=== PATIENT | female | born 1950 | race Caucasian/White ===

== ENCOUNTER 2024-01-02 11:06 | Inpatient (IN) | payer MEDICARE ==
[~2024-01-02] VITALS: Ht 167.6 cm; Wt 110.0 kg
[~2024-01-02 11:06] MED LIST: APIX5TAB PO; ATOR10TA69 PO; BENZ100C68 PO; CARV25TA32 PO; CIPR500T10 PO; DOXY-354 PO; ESCI20TA37 PO; FURO20TA4 PO; LEVO75 PO; LINE600T14 PO; LISI10TA24 PO; MIRT-93 PO; NYST30CR9 TP; PREG50CA64 PO; QUET50TA24 PO; TAMS0.4C94 PO; ZOLP12.570 PO
[2024-01-02] MEDS ORDERED: 0.9% SODIUM CHLORIDE 10 ML SYRINGE IVP PRN (11:30)
[2024-01-02 11:59] LABS: BASOPHILS % (AUTO) 0.5 % (0.0-2.0); EOSINOPHILS % (AUTO) 1.5 % (1.0-6.0); HEMATOCRIT 28.6 % (36-46); HEMOGLOBIN 9.1 g/dL (12.0-16.0); LYMPHOCYTES # (AUTO) 1.5 K/uL (1.0-4.8); LYMPHOCYTES % (AUTO) 18.8 % (22.0-44.0); MEAN CORPUSCULAR HEMOGLOBIN 30.6 pg (26.0-34.0); MEAN CORPUSCULAR HGB CONC 31.9 G/dL (31.0-37.0); MEAN CORPUSCULAR VOLUME 96 fL (80-100); MONOCYTES # (AUTO) 0.7 K/uL (0.1-1.0); MONOCYTES % (AUTO) 9.3 % (2.0-9.0); NEUTROPHILS # (AUTO) 5.5 K/uL (1.8-7.7); NEUTROPHILS % (AUTO) 69.9 % (40.0-70.0); PLATELET COUNT (AUTO) 190 K/uL (150-450); RED BLOOD CELL COUNT(AUTO) 2.98 MIL/uL (4.00-5.20); RED CELL DISTRIBUTION WIDTH 16.2 % (11.5-14.5); WHITE BLOOD COUNT (AUTO) 7.8 K/uL (4.5-11.0)
[2024-01-02] MEDS: VANCOMYCIN 1GM/WATER(PEG/NADA) 200 ML IV ONE (12:08)
[2024-01-02] MEDS: SODIUM CHLORIDE 0.9% 3,350 ML IV ONE (12:08)
[2024-01-02 12:15] LABS: INR 1.1 (0.9-1.1); PROTHROMBIN TIME 11.7 SEC (9.4-11.6)
[2024-01-02 12:16] LABS: B-TYPE NATRIURETIC PEPTIDE 274 pg/mL (0-100)
[2024-01-02 12:19] LABS: TROPONIN I-HIGH SENSITIVITY 6 ng/L (<51)
[2024-01-02 12:21] LABS: ALANINE AMINOTRANSFERASE 21 U/L (12-78); ALBUMIN 2.8 g/dL (3.4-5.0); ALKALINE PHOSPHATASE 140 U/L (46-116); ANION GAP 12 mmol/L (8-16); ASPARTATE AMINOTRANSFERASE 15 U/L (15-37); BILIRUBIN,TOTAL 0.1 mg/dL (0.1-1.0); CALCIUM, TOTAL 8.5 mg/dL (8.8-10.5); CARBON DIOXIDE 15 mmol/L (22-29); CHLORIDE 108 mmol/L (98-107); CREATINE KINASE, TOTAL ONLY 61 U/L (26-192); CREATININE 5.41 mg/dL (0.60-1.30); GLOMERULAR FILTR. RATE CALC 8 mL/min (>60); GLUCOSE,RANDOM 104 mg/dL (70-110); SODIUM SERUM 135 mmol/L (136-145)
[2024-01-02 12:26] LABS: LACTIC ACID < 0.3 mmol/L (0.4-2.0)
[2024-01-02 12:27] LABS: UREA NITROGEN, BLOOD 128 mg/dL (7-18)
[2024-01-02] MEDS: SODIUM BICARBONATE [ADULT] 8.4% 50 MEQ/50 ML SYRINGE IVP ONE (13:16)
[2024-01-02] MEDS: INSULIN REGULAR, HUMAN 100 UNITS/ML IVP ONE (13:16)
[2024-01-02] MEDS: DEXTROSE 50%-WATER 25 GM/50 ML SYRINGE IVP ONE (13:16)
[2024-01-02] MEDS: NOREPINEPHRINE 8 MG/0.9 % NACL 250 ML IV PRN (13:17)
[2024-01-02 13:18] VITALS: PULSE 55; RESP 16; O2SAT 98
[2024-01-02] MEDS: ALBUTEROL SULFATE 2.5 MG/0.5 ML NEB SOLUTION NEB ONE (13:18)
[2024-01-02 13:33] VITALS: PULSE 51; RESP 16; O2SAT 99
[2024-01-02 13:40] LABS: THYROID STIMULATING HORMONE 1.66 uIU/mL (0.36-3.74)
[2024-01-02] MEDS: CALCIUM GLUCONATE 1,000 MG in DEXTROSE 5%-WATER 50 ML IV ONE (13:40)
[2024-01-02] MEDS: SODIUM ZIRCONIUM CYCLOSILICATE 5 GM POWDER PACKET PO ONE (14:42)
[2024-01-02 15:17] LABS: APPEARANCE,URINE CLEAR (CLEAR); BILIRUBIN,URINE NEGATIVE (NEGATIVE); COLOR,URINE LIGHT YELLOW (YELLOW); GLUCOSE, URINE (UA) NEGATIVE (NEGATIVE); KETONES,URINE NEGATIVE (NEGATIVE); LEUKOCYTE ESTERASE ,URINE NEGATIVE (NEGATIVE); NITRATE,URINE NEGATIVE (NEGATIVE); OCCULT BLOOD,URINE NEGATIVE (NEGATIVE); PROTEIN,URINE TRACE mg/dL (NEGATIVE); UROBILINOGEN,URINE <=1.0 mg/dL (<=1.0)
[2024-01-02 17:08] LABS: CALCIUM, TOTAL 8.5 mg/dL (8.8-10.5); CREATININE 4.93 mg/dL (0.60-1.30); POTASSIUM 5.5 mmol/L (3.5-5.1)
[2024-01-02 17:14] LABS: SOURCE, BLOOD GAS ARTERIAL; TEMPERATURE, FAHRENHEIT, BG 92.6 FAHREN (96.0-98.6)
[2024-01-02 17:17] LABS: ABG BASE EXCESS -17.5 mmol/L (-2.0-3.0); ABG CARBOXYHEMOGLOBIN 0.7 % (0.0-1.5); ABG HCO3 11.5 mmol/L (22.0-26.0); ABG OXYGEN SATURATION 98.2 % (95.0-98.0); ABG OXYHEMOGLOBIN 96.5 % (94.0-100.0); ABG PCO2 44 mmHg (35-45); ABG TOTAL HEMOGLOBIN 10.9 G/dL (12.0-18.0); PO2, ARTERIAL BG 94.4 mmHg (75.0-83.0)
[2024-01-02 17:18] LABS: ABG A-A DIFF O2 56.2 mmHg (10-20.0); ALLEN TEST, BLOOD GAS Positive; O2 DEVICE,BLOOD GAS CANNULA (ROOM AIR); SITE, BLOOD GAS RT RADIAL
[2024-01-02 17:19] LABS: ALCOHOL, URINE DRUG SCREEN NEGATIVE (NEGATIVE); AMPHET/METH SCREEN,URINE NEGATIVE (NEGATIVE); BARBITURATE SCREEN, URINE NEGATIVE (NEGATIVE); BENZODIAZEPINES SCREEN,URINE NEGATIVE (NEGATIVE); CANNABINOID SCREEN,URINE NEGATIVE (NEGATIVE); COCAINE SCREEN,URINE NEGATIVE (NEGATIVE); METHADONE SCREEN, URINE NEGATIVE (NEGATIVE); OPIATE SCREEN,URINE NEGATIVE (NEGATIVE); PHENCYCLIDINE SCREEN,URINE NEGATIVE (NEGATIVE)
[2024-01-02 17:32] LABS: ABG PH 7.077 (7.35-7.450)
[2024-01-02] MEDS ORDERED: PHENYLEPHRINE 200 MG/D5%-WATER 250 ML IV PRN (20:30)
[2024-01-02] MEDS: CefTRIAXone 1 GM/DEXTROSE 50 ML IV SCH (20:41)
[2024-01-02] MEDS: SODIUM BICARBONATE 150 MEQ in DEXTROSE 5%-WATER 1,000 ML IV ONE (21:19)
[2024-01-03] VITALS: BP 148/82; PULSE 66; PULSE 72; RESP 16; TEMP 97.4
[2024-01-03] MEDS ORDERED: MORPHINE SULFATE 2 MG/ML SYRINGE IVP PRN (01:15)
[2024-01-03 04:00] VITALS: BP 130/52; PULSE 70; RESP 19; TEMP 98.6
[2024-01-03] MEDS: NOREPINEPHRINE 8 MG/0.9 % NACL 250 ML IV PRN (05:50)
[2024-01-03 06:02] LABS: BASOPHILS % (AUTO) 0.3 % (0.0-2.0); EOSINOPHILS % (AUTO) 1.7 % (1.0-6.0); HEMATOCRIT 28.9 % (36-46); HEMOGLOBIN 9.5 g/dL (12.0-16.0); LYMPHOCYTES # (AUTO) 1.1 K/uL (1.0-4.8); LYMPHOCYTES % (AUTO) 10.9 % (22.0-44.0); MEAN CORPUSCULAR HEMOGLOBIN 31.2 pg (26.0-34.0); MEAN CORPUSCULAR HGB CONC 32.9 G/dL (31.0-37.0); MEAN CORPUSCULAR VOLUME 95 fL (80-100); MONOCYTES # (AUTO) 0.8 K/uL (0.1-1.0); MONOCYTES % (AUTO) 8.2 % (2.0-9.0); NEUTROPHILS # (AUTO) 7.8 K/uL (1.8-7.7); NEUTROPHILS % (AUTO) 78.9 % (40.0-70.0); PLATELET COUNT (AUTO) 195 K/uL (150-450); RED BLOOD CELL COUNT(AUTO) 3.05 MIL/uL (4.00-5.20); RED CELL DISTRIBUTION WIDTH 15.8 % (11.5-14.5); WHITE BLOOD COUNT (AUTO) 9.9 K/uL (4.5-11.0)
[2024-01-03 06:13] LABS: CALCIUM, TOTAL 8.6 mg/dL (8.8-10.5); CREATININE 4.5 mg/dL (0.60-1.30)
[2024-01-03 08:00] VITALS: BP 109/52; PULSE 63; RESP 14; TEMP 98.1
[2024-01-03] MEDS ORDERED: MAGNESIUM HYDROXIDE SUSPENSION 30 ML UDCUP PO PRN (08:15)
[2024-01-03] MEDS ORDERED: BISACODYL 10 MG RECTAL RECTAL SUPPOSITORY PR PRN (08:15)
[2024-01-03 08:41] LABS: GLUCOMETER DEV NAME(LOC) ER.7; GLUCOSE,POINT OF CARE 114 MG/DL (70-110)
[2024-01-03] MEDS: EPOETIN ALFA 10,000 UNITS/ML VIAL SQ ONE (10:01)
[2024-01-03] MEDS: ESCITALOPRAM OXALATE 20 MG TABLET PO SCH (10:02)
[2024-01-03] MEDS: PANTOPRAZOLE SODIUM 40 MG DR TABLET PO SCH (10:02)
[2024-01-03] MEDS: APIXABAN 5 MG TABLET PO SCH (10:02)
[2024-01-03] MEDS: ATORVASTATIN CALCIUM 10 MG TABLET PO SCH (10:02)
[2024-01-03 12:00] VITALS: BP 115/69; PULSE 91; RESP 13; TEMP 98.1
[2024-01-03] MEDS: SODIUM BICARBONATE 150 MEQ in DEXTROSE 5%-WATER 1,000 ML IV SCH (13:45)
[2024-01-03] MEDS: MORPHINE SULFATE 2 MG/ML SYRINGE IVP PRN (15:30)
[2024-01-03 16:00] VITALS: BP 119/66; PULSE 68; RESP 19; TEMP 98.3
[2024-01-03 17:40] LABS: CREATININE,URINE RANDOM 50.7 mg/dL (30.0-125.0)
[2024-01-03 20:00] VITALS: BP 108/50; PULSE 68; RESP 13; TEMP 98.1
[2024-01-03] MEDS: QUEtiapine FUMARATE 25 MG TABLET PO SCH (20:40)
[2024-01-04] VITALS (8 sets, daily range): BP systolic 120–145; BP diastolic 55–81; PULSE 57–75; RESP 13–19; TEMP 97.8–99.6
[2024-01-04] MEDS: HYDROCODONE/ACETAMINOPHEN 5-325 MG TABLET PO PRN (03:47)
[2024-01-04] MEDS: LEVOTHYROXINE SODIUM 75 MCG TABLET PO SCH (06:21)
[2024-01-04] MEDS: ACETAMINOPHEN 325 MG TABLET PO PRN (12:07)
[2024-01-04 16:24] LABS: BASOPHILS % (AUTO) 0.3 % (0.0-2.0); EOSINOPHILS % (AUTO) 0.8 % (1.0-6.0); HEMATOCRIT 27.4 % (36-46); LYMPHOCYTES % (AUTO) 13.2 % (22.0-44.0); MEAN CORPUSCULAR HEMOGLOBIN 30.6 pg (26.0-34.0); MEAN CORPUSCULAR HGB CONC 32.9 G/dL (31.0-37.0); MEAN CORPUSCULAR VOLUME 93 fL (80-100); MONOCYTES # (AUTO) 1.2 K/uL (0.1-1.0); MONOCYTES % (AUTO) 15.3 % (2.0-9.0); NEUTROPHILS # (AUTO) 5.4 K/uL (1.8-7.7); NEUTROPHILS % (AUTO) 70.4 % (40.0-70.0); PLATELET COUNT (AUTO) 178 K/uL (150-450); RED BLOOD CELL COUNT(AUTO) 2.95 MIL/uL (4.00-5.20); RED CELL DISTRIBUTION WIDTH 15.9 % (11.5-14.5); WHITE BLOOD COUNT (AUTO) 7.7 K/uL (4.5-11.0)
[2024-01-04 16:28] LABS: CALCIUM, TOTAL 8.5 mg/dL (8.8-10.5); CREATININE 2.9 mg/dL (0.60-1.30); POTASSIUM 4.4 mmol/L (3.5-5.1)
[2024-01-04 16:33] LABS: ALBUMIN 2.6 g/dL (3.4-5.0); BILIRUBIN,TOTAL 0.3 mg/dL (0.1-1.0); TOTAL PROTEIN, SERUM 6.9 g/dL (6.4-8.2)
[2024-01-05] VITALS (9 sets, daily range): BP systolic 117–154; BP diastolic 52–69; PULSE 62–79; RESP 20; TEMP 98.4–100.3
[2024-01-06] VITALS (12 sets, daily range): BP systolic 123–159; BP diastolic 58–70; PULSE 56–72; RESP 18–24; TEMP 98–100.4; O2SAT 92–97
[2024-01-06] MEDS: ALBUTEROL SULFATE 2.5 MG/0.5 ML NEB SOLUTION NEB PRN (00:15)
[2024-01-06] MEDS: IPRATROPIUM BROMIDE 0.5 MG/2.5 ML NEB SOLUTION NEB PRN (00:15)
[2024-01-06 01:06] LABS: CREATININE, URINE (mALB) 51.1 mg/dL (Not Estab.)
[2024-01-06 09:01] LABS: BASOPHILS % (AUTO) 0.3 % (0.0-2.0); CALCIUM, TOTAL 9.1 mg/dL (8.8-10.5); CREATININE 1.96 mg/dL (0.60-1.30); EOSINOPHILS % (AUTO) 1.3 % (1.0-6.0); HEMATOCRIT 26.3 % (36-46); HEMOGLOBIN 8.4 g/dL (12.0-16.0); LYMPHOCYTES # (AUTO) 1.3 K/uL (1.0-4.8); MEAN CORPUSCULAR HEMOGLOBIN 30.1 pg (26.0-34.0); MEAN CORPUSCULAR VOLUME 94 fL (80-100); MONOCYTES # (AUTO) 1.3 K/uL (0.1-1.0); MONOCYTES % (AUTO) 13.2 % (2.0-9.0); NEUTROPHILS # (AUTO) 7.1 K/uL (1.8-7.7); NEUTROPHILS % (AUTO) 72.2 % (40.0-70.0); POTASSIUM 4.3 mmol/L (3.5-5.1); RED BLOOD CELL COUNT(AUTO) 2.79 MIL/uL (4.00-5.20); RED CELL DISTRIBUTION WIDTH 15.4 % (11.5-14.5); WHITE BLOOD COUNT (AUTO) 9.8 K/uL (4.5-11.0)
[2024-01-06 09:22] LABS: PLATELET COUNT (AUTO) 172 K/uL (150-450)
[2024-01-06 12:16] LABS: APPEARANCE,URINE CLEAR (CLEAR); BILIRUBIN,URINE NEGATIVE (NEGATIVE); COLOR,URINE LIGHT YELLOW (YELLOW); GLUCOSE, URINE (UA) NEGATIVE (NEGATIVE); KETONES,URINE NEGATIVE (NEGATIVE); LEUKOCYTE ESTERASE ,URINE LARGE (NEGATIVE); NITRATE,URINE NEGATIVE (NEGATIVE); OCCULT BLOOD,URINE LARGE (NEGATIVE); PROTEIN,URINE 100-200,SEE CONFIRM mg/dL (NEGATIVE); SPECIFIC GRAVITIY, URINE 1.018 (1.003-1.030); UROBILINOGEN,URINE <=1.0 mg/dL (<=1.0)
[2024-01-06 12:22] LABS: BACTERIA,URINE Moderate /HPF (None Seen); RBC,URINE 51-100 /HPF (0-2); SULFOSALICYLIC ACID,URINE 2+ (Negative); WBC,URINE 26-50 /HPF (0-5)
[2024-01-06 12:23] LABS: YEAST,URINE Moderate /HPF (None Seen)
[2024-01-06] MEDS: *CLINICAL-CEFEPIME DOSING CLINICAL ONE (13:28)
[2024-01-06] MEDS: CEFEPIME HCL 1 GM in DEXTROSE 5%-WATER 50 ML IV SCH (14:25)
[2024-01-06] MEDS ORDERED: SODIUM CHLORIDE 0.9% 500 ML IV ONE (14:26)
[2024-01-06] MEDS: DAPTOMYCIN 500 MG in SODIUM CHLORIDE 0.9% 50 ML IV SCH (15:17)
[2024-01-06] MEDS: DEXTROSE 5%-WATER 1,000 ML IV SCH (17:43)
[2024-01-07] MEDS: BENZONATATE 100 MG CAPSULE PO PRN (01:08)
[2024-01-07 04:55] VITALS: BP 152/75; PULSE 67; RESP 18; TEMP 99.9
[2024-01-07 07:46] LABS: CALCIUM, TOTAL 9.1 mg/dL (8.8-10.5); CREATININE 1.81 mg/dL (0.60-1.30)
[2024-01-07 08:15] VITALS: BP 148/78; PULSE 68; RESP 19; TEMP 98.9
[2024-01-07] MEDS: GuaiFENesin SR 600 MG ER TABLET PO SCH (13:36)
[2024-01-07] MEDS: MetroNIDAZOLE 500 MG TABLET PO SCH (16:04)
[2024-01-07 16:21] VITALS: BP 144/64; PULSE 66; RESP 19; TEMP 98.8
[2024-01-07 19:26] VITALS: BP 149/73; PULSE 63; RESP 18; TEMP 98.7
[2024-01-08 04:30] VITALS: BP 151/71; PULSE 61; RESP 20; TEMP 98.5
[2024-01-08 08:15] VITALS: BP 158/77; PULSE 61; RESP 18; TEMP 98.4
[2024-01-08 10:55] LABS: BASOPHILS % (AUTO) 0.6 % (0.0-2.0); EOSINOPHILS % (AUTO) 2.4 % (1.0-6.0); HEMATOCRIT 25.1 % (36-46); HEMOGLOBIN 8.1 g/dL (12.0-16.0); MEAN CORPUSCULAR HEMOGLOBIN 30.4 pg (26.0-34.0); MEAN CORPUSCULAR HGB CONC 32.3 G/dL (31.0-37.0); MEAN CORPUSCULAR VOLUME 94 fL (80-100); MONOCYTES % (AUTO) 12.7 % (2.0-9.0); NEUTROPHILS # (AUTO) 5.7 K/uL (1.8-7.7); NEUTROPHILS % (AUTO) 71.3 % (40.0-70.0); PLATELET COUNT (AUTO) 186 K/uL (150-450); RED BLOOD CELL COUNT(AUTO) 2.67 MIL/uL (4.00-5.20); RED CELL DISTRIBUTION WIDTH 14.9 % (11.5-14.5)
[2024-01-08 11:03] LABS: CALCIUM, TOTAL 9.2 mg/dL (8.8-10.5); CREATININE 1.51 mg/dL (0.60-1.30)
[2024-01-08 11:09] LABS: ALBUMIN 2.2 g/dL (3.4-5.0); BILIRUBIN,TOTAL 0.5 mg/dL (0.1-1.0); TOTAL PROTEIN, SERUM 6.7 g/dL (6.4-8.2)
[2024-01-08 15:06] VITALS: BP 147/75; PULSE 59; RESP 18; TEMP 98.6
[2024-01-08 19:25] VITALS: BP 134/58; PULSE 66; RESP 18; TEMP 98.4
[2024-01-09] VITALS (7 sets, daily range): BP systolic 140–151; BP diastolic 68–89; PULSE 60–75; RESP 18–20; TEMP 98.3–99.2; O2SAT 100
[2024-01-09] MEDS: ONDANSETRON HCL 4 MG/2 ML VIAL IVP PRN (10:07)
[2024-01-09] MEDS ORDERED: SODIUM CHLORIDE 0.9% 500 ML IV ONE (14:47)
[2024-01-10 03:02] VITALS: BP 147/90; PULSE 75; RESP 20; TEMP 98.7
[2024-01-10 08:00] VITALS: BP 143/72; PULSE 68; RESP 18; TEMP 98.3
[2024-01-10] MEDS: AMPICILLIN SODIUM/SULBACTAM NA 3 GM in SODIUM CHLORIDE 0.9% 100 ML IV SCH (14:00)
[2024-01-10 15:59] VITALS: BP 139/77; PULSE 70; RESP 18; TEMP 97.7
[2024-01-10] MEDS ORDERED: DAPTOMYCIN 500 MG in SODIUM CHLORIDE 0.9% 50 ML IV SCH (16:00)
[2024-01-10 19:31] VITALS: BP 124/60; PULSE 79; RESP 18; TEMP 98.9
[2024-01-11] VITALS (7 sets, daily range): BP systolic 143–149; BP diastolic 72–87; PULSE 73–78; RESP 18–20; TEMP 97.8–99.1; O2SAT 90–96
[2024-01-11 12:22] LABS: CREATININE 1.42 mg/dL (0.60-1.30); MAGNESIUM 1.8 mg/dL (1.80-2.40); PHOSPHORUS 2.9 mg/dL (2.5-4.9); POTASSIUM 4.3 mmol/L (3.5-5.1)
[2024-01-12] VITALS (12 sets, daily range): BP systolic 132–147; BP diastolic 70–91; PULSE 68–125; RESP 15–33; TEMP 97.5–99.6; O2SAT 90–97
[2024-01-12] MEDS ORDERED: SODIUM CHLORIDE 0.9% 500 ML IV ONE (09:08)
[2024-01-12] MEDS ORDERED: LOPERAMIDE HCL 2 MG CAPSULE PO PRN (13:00)
[2024-01-12 14:52] LABS: ABG BASE EXCESS 0.3 mmol/L (-2.0-3.0); ABG CARBOXYHEMOGLOBIN 0.3 % (0.0-1.5); ABG HCO3 24.1 mmol/L (22.0-26.0); ABG METHEMOGLOBIN 0.1 % (0.0-1.5); ABG OXYGEN CONTENT 15.4 mL/dL (15.0-23.0); ABG OXYGEN SATURATION 96.6 % (95.0-98.0); ABG OXYHEMOGLOBIN 96.2 % (94.0-100.0); ABG PCO2 56 mmHg (35-45); ABG PH 7.297 (7.35-7.450); ABG TOTAL HEMOGLOBIN 11.3 G/dL (12.0-18.0); PO2, ARTERIAL BG 96.5 mmHg (75.0-83.0); SOURCE, BLOOD GAS ARTERIAL; TEMPERATURE, FAHRENHEIT, BG 98.6 FAHREN (96.0-98.6)
[2024-01-12 14:55] LABS: ALLEN TEST, BLOOD GAS Positive; O2 DEVICE,BLOOD GAS SIMPLE MASK (ROOM AIR); SITE, BLOOD GAS LFT RADIAL
[2024-01-12] MEDS ORDERED: SODIUM CHLORIDE 0.9% 250 ML IV ONE (14:59)
[2024-01-12] MEDS: AMPICILLIN SODIUM 2 GM/NS 100 ML IV SCH (15:40)
[2024-01-12] MEDS: MetroNIDAZOLE 500 MG TABLET PO SCH (15:41)
[2024-01-12] MEDS: NYSTATIN 15 GM POWDER BOTTLE TP SCH (15:41)
[2024-01-12 19:50] LABS: GLUCOMETER DEV NAME(LOC) 6S.2; GLUCOSE,POINT OF CARE 188 MG/DL (70-110)
[2024-01-13] VITALS (15 sets, daily range): BP systolic 129–159; BP diastolic 57–94; PULSE 65–97; RESP 13–39; TEMP 97.5–98; O2SAT 94–96
[2024-01-13 05:54] LABS: BASOPHILS % (AUTO) 0.5 % (0.0-2.0); EOSINOPHILS % (AUTO) 1.6 % (1.0-6.0); HEMATOCRIT 26.2 % (36-46); HEMOGLOBIN 8.4 g/dL (12.0-16.0); LYMPHOCYTES # (AUTO) 1.1 K/uL (1.0-4.8); LYMPHOCYTES % (AUTO) 11.6 % (22.0-44.0); MEAN CORPUSCULAR HEMOGLOBIN 30.1 pg (26.0-34.0); MEAN CORPUSCULAR VOLUME 94 fL (80-100); MONOCYTES # (AUTO) 1.2 K/uL (0.1-1.0); MONOCYTES % (AUTO) 12.4 % (2.0-9.0); NEUTROPHILS # (AUTO) 7.2 K/uL (1.8-7.7); NEUTROPHILS % (AUTO) 73.9 % (40.0-70.0); PLATELET COUNT (AUTO) 274 K/uL (150-450); RED BLOOD CELL COUNT(AUTO) 2.78 MIL/uL (4.00-5.20); RED CELL DISTRIBUTION WIDTH 14.9 % (11.5-14.5); WHITE BLOOD COUNT (AUTO) 9.7 K/uL (4.5-11.0)
[2024-01-13 06:02] LABS: ALBUMIN 2.4 g/dL (3.4-5.0); BILIRUBIN,TOTAL 0.4 mg/dL (0.1-1.0); CREATININE 1.39 mg/dL (0.60-1.30); MAGNESIUM 1.8 mg/dL (1.80-2.40); PHOSPHORUS 2.5 mg/dL (2.5-4.9); POTASSIUM 3.5 mmol/L (3.5-5.1); TOTAL PROTEIN, SERUM 6.6 g/dL (6.4-8.2)
[2024-01-13] MEDS: DiphenhydrAMINE HCL 25 MG CAPSULE PO PRN (16:55)
[2024-01-13] MEDS: ZOLPIDEM TARTRATE 5 MG TABLET PO PRN (20:58)
[2024-01-14] VITALS (10 sets, daily range): BP systolic 127–205; BP diastolic 46–173; PULSE 63–113; RESP 15–36; TEMP 97.7–99.4; O2SAT 94–95
[2024-01-14 05:58] LABS: BASOPHILS % (AUTO) 0.6 % (0.0-2.0); EOSINOPHILS % (AUTO) 2.2 % (1.0-6.0); HEMOGLOBIN 8.4 g/dL (12.0-16.0); LYMPHOCYTES # (AUTO) 1.1 K/uL (1.0-4.8); LYMPHOCYTES % (AUTO) 13.8 % (22.0-44.0); MEAN CORPUSCULAR HEMOGLOBIN 30.1 pg (26.0-34.0); MEAN CORPUSCULAR HGB CONC 32.2 G/dL (31.0-37.0); MEAN CORPUSCULAR VOLUME 94 fL (80-100); MONOCYTES # (AUTO) 0.9 K/uL (0.1-1.0); MONOCYTES % (AUTO) 11.7 % (2.0-9.0); NEUTROPHILS # (AUTO) 5.5 K/uL (1.8-7.7); NEUTROPHILS % (AUTO) 71.7 % (40.0-70.0); PLATELET COUNT (AUTO) 279 K/uL (150-450); RED BLOOD CELL COUNT(AUTO) 2.78 MIL/uL (4.00-5.20); WHITE BLOOD COUNT (AUTO) 7.7 K/uL (4.5-11.0)
[2024-01-14 06:12] LABS: CALCIUM, TOTAL 8.8 mg/dL (8.8-10.5); CREATININE 1.17 mg/dL (0.60-1.30); MAGNESIUM 1.6 mg/dL (1.80-2.40); PHOSPHORUS 2.4 mg/dL (2.5-4.9); POTASSIUM 3.3 mmol/L (3.5-5.1)
[2024-01-14 06:25] LABS: % IRON SATURATION 17.6 % (22-44)
[2024-01-14] MEDS: EPOETIN ALFA 10,000 UNITS/ML VIAL SQ SCH (08:17)
[2024-01-14] MEDS: SODIUM,POTASSIUM PHOSPHATES POWDER PACKET PO SCH (08:23)
[2024-01-14] MEDS: POTASSIUM CHLORIDE 20 MEQ ER TABLET PO ONE (08:23)
[2024-01-14] MEDS: AmLODIPine BESYLATE 5 MG TABLET PO SCH (08:59)
[2024-01-14] MEDS: MAGNESIUM SULFATE 2 GM/WATER 50 ML IV ONE (09:56)
[2024-01-14] MEDS: HydrALAZINE HCL 20 MG/ML VIAL IVP PRN (09:57)
[2024-01-14] MEDS: LORazepam 2 MG/ML VIAL IVP PRN (11:35)
[2024-01-14] MEDS ORDERED: LABETALOL HCL 5 MG/ML 20 ML VIAL IVP ONE (12:00)
[2024-01-14] MEDS: LABETALOL HCL 5 MG/ML 20 ML VIAL IVP ONE (12:00)
[2024-01-14 12:05] LABS: ABG BASE EXCESS 1.9 mmol/L (-2.0-3.0); ABG CARBOXYHEMOGLOBIN 0.2 % (0.0-1.5); ABG HCO3 26.2 mmol/L (22.0-26.0); ABG METHEMOGLOBIN 0.1 % (0.0-1.5); ABG OXYGEN CONTENT 16.2 mL/dL (15.0-23.0); ABG OXYGEN SATURATION 92.4 % (95.0-98.0); ABG OXYHEMOGLOBIN 92.1 % (94.0-100.0); ABG PCO2 37 mmHg (35-45); ABG PH 7.463 (7.35-7.450); ABG TOTAL HEMOGLOBIN 12.5 G/dL (12.0-18.0); PO2, ARTERIAL BG 58.5 mmHg (75.0-83.0); SOURCE, BLOOD GAS ARTERIAL; TEMPERATURE, FAHRENHEIT, BG 98.6 FAHREN (96.0-98.6)
[2024-01-14 12:06] LABS: ABG A-A DIFF O2 148.4 mmHg (10-20.0); ALLEN TEST, BLOOD GAS Positive; O2 DEVICE,BLOOD GAS BIPAP (ROOM AIR); SITE, BLOOD GAS LFT RADIAL
[2024-01-14 12:07] LABS: SPONTANEOUS VT, BG 568 ml
[2024-01-14] MEDS ORDERED: LABETALOL HCL 5 MG/ML 20 ML VIAL IVP PRN (12:30)
[2024-01-15] VITALS (10 sets, daily range): BP systolic 120–149; BP diastolic 65–88; PULSE 69–95; RESP 20–32; TEMP 97.6–98.6; O2SAT 91–95
[2024-01-15 06:07] LABS: BASOPHILS % (AUTO) 0.6 % (0.0-2.0); HEMATOCRIT 25.5 % (36-46); HEMOGLOBIN 8.2 g/dL (12.0-16.0); LYMPHOCYTES % (AUTO) 12.6 % (22.0-44.0); MEAN CORPUSCULAR HEMOGLOBIN 30.1 pg (26.0-34.0); MEAN CORPUSCULAR HGB CONC 32.2 G/dL (31.0-37.0); MEAN CORPUSCULAR VOLUME 94 fL (80-100); MONOCYTES # (AUTO) 1.1 K/uL (0.1-1.0); MONOCYTES % (AUTO) 13.8 % (2.0-9.0); NEUTROPHILS # (AUTO) 5.7 K/uL (1.8-7.7); PLATELET COUNT (AUTO) 312 K/uL (150-450); RED BLOOD CELL COUNT(AUTO) 2.72 MIL/uL (4.00-5.20); WHITE BLOOD COUNT (AUTO) 8.1 K/uL (4.5-11.0)
[2024-01-15 06:17] LABS: CALCIUM, TOTAL 8.9 mg/dL (8.8-10.5); CREATININE 1.2 mg/dL (0.60-1.30); MAGNESIUM 2.1 mg/dL (1.80-2.40); PHOSPHORUS 2.9 mg/dL (2.5-4.9); POTASSIUM 3.6 mmol/L (3.5-5.1)
[2024-01-15] MEDS: FUROSEMIDE 20 MG/2 ML VIAL IVP SCH (10:08)
[2024-01-15] MEDS: FERROUS GLUCONATE 324 MG TABLET PO SCH (18:00)
[2024-01-16 04:00] VITALS: BP 132/81; PULSE 87; RESP 21; TEMP 98.2
[2024-01-16 06:39] LABS: BASOPHILS % (AUTO) 0.6 % (0.0-2.0); EOSINOPHILS % (AUTO) 1.4 % (1.0-6.0); HEMATOCRIT 28.2 % (36-46); HEMOGLOBIN 9.2 g/dL (12.0-16.0); LYMPHOCYTES # (AUTO) 1.2 K/uL (1.0-4.8); LYMPHOCYTES % (AUTO) 13.1 % (22.0-44.0); MEAN CORPUSCULAR HEMOGLOBIN 30.1 pg (26.0-34.0); MEAN CORPUSCULAR HGB CONC 32.5 G/dL (31.0-37.0); MEAN CORPUSCULAR VOLUME 93 fL (80-100); MONOCYTES # (AUTO) 1.2 K/uL (0.1-1.0); MONOCYTES % (AUTO) 12.8 % (2.0-9.0); NEUTROPHILS # (AUTO) 6.7 K/uL (1.8-7.7); NEUTROPHILS % (AUTO) 72.1 % (40.0-70.0); PLATELET COUNT (AUTO) 361 K/uL (150-450); RED BLOOD CELL COUNT(AUTO) 3.04 MIL/uL (4.00-5.20); RED CELL DISTRIBUTION WIDTH 15.4 % (11.5-14.5); WHITE BLOOD COUNT (AUTO) 9.3 K/uL (4.5-11.0)
[2024-01-16 06:58] LABS: CALCIUM, TOTAL 8.7 mg/dL (8.8-10.5); CREATININE 1.26 mg/dL (0.60-1.30); MAGNESIUM 1.7 mg/dL (1.80-2.40)
[2024-01-16 07:35] VITALS: BP 153/83; PULSE 88; RESP 20; TEMP 98
[2024-01-16] MEDS ORDERED: POTASSIUM CHL 10 MEQ/WATER 50 ML IV PRN (08:00)
[2024-01-16] MEDS: POTASSIUM CHLORIDE 20 MEQ ER TABLET PO PRN (08:40)
[2024-01-16] MEDS: FUROSEMIDE 20 MG/2 ML VIAL IVP SCH (08:41)
[2024-01-16] MEDS ORDERED: FERR324T23 PO (10:45)
[2024-01-16] MEDS ORDERED: ZOLP12.570 PO (10:45)
[2024-01-16] MEDS ORDERED: AMPI2VIA IVP ×2 (10:45→12:01)
[2024-01-16] MEDS ORDERED: METR500 PO (10:45)
[2024-01-16] MEDS ORDERED: TAMS0.4C94 PO (10:45)
[2024-01-16] MEDS ORDERED: MIRT-93 PO (10:45)
[2024-01-16] MEDS ORDERED: AMLO-257 PO (10:45)
[2024-01-16] MEDS ORDERED: APIX5TAB PO (10:45)
[2024-01-16] MEDS ORDERED: ALBU2.5V39 NEB (10:45)
[2024-01-16] MEDS ORDERED: FURO40 PO (10:46)
[2024-01-16 11:04] VITALS: BP 138/69; PULSE 85; RESP 19; TEMP 98.1
[2024-01-16 15:23] VITALS: BP 118/69; PULSE 81; RESP 19; TEMP 98.5
[2024-01-16] MEDS ORDERED: NEOMYCIN/BACITRACIN/POLYMYXIN B 30 GM OINTMENT TP SCH (21:00)
[2024-01-17] MEDS ORDERED: AmLODIPine BESYLATE 5 MG TABLET PO SCH (09:00)
== END 2024-01-16 20:25 | DRG 871 ==
LOC: EMS 11:07 → EDH 14:24 → ICU 22:22 → 5S 01-04 20:56 → 6S 01-06 11:11 → ICU 01-12 14:55 → 5S 01-15 12:30
PROVIDERS: ADMIT Hospitalist; ATTEND Hospitalist
PROC: 5A09357 Assistance with Respiratory Ventilation, Less than 24 Consecutive Hours, Continuous Positive Airway Pressure (ICD-10-PCS; principal; 2024-01-12)
PROC: 5A09357 Assistance with Respiratory Ventilation, Less than 24 Consecutive Hours, Continuous Positive Airway Pressure (ICD-10-PCS; 2024-01-13)
PROC: 5A09357 Assistance with Respiratory Ventilation, Less than 24 Consecutive Hours, Continuous Positive Airway Pressure (ICD-10-PCS; 2024-01-14)
PROC: 5A1935Z Respiratory Ventilation, Less than 24 Consecutive Hours (ICD-10-PCS; 2024-01-15)
DX: A41.9 Sepsis, unspecified organism (principal); G92.8 Other toxic encephalopathy; J96.01 Acute respiratory failure with hypoxia; N17.0 Acute kidney failure with tubular necrosis; I50.43 Acute on chronic combined systolic (congestive) and diastolic (congestive) heart failure; J15.69 Pneumonia due to other Gram-negative bacteria; J15.9 Unspecified bacterial pneumonia; E87.20 Acidosis, unspecified; I13.0 Hypertensive heart and chronic kidney disease with heart failure and stage 1 through stage 4 chronic kidney disease, or unspecified chronic kidney disease; L03.116 Cellulitis of left lower limb; L03.115 Cellulitis of right lower limb; E87.0 Hyperosmolality and hypernatremia; N39.0 Urinary tract infection, site not specified; Z16.13 Resistance to carbapenem; Z16.21 Resistance to vancomycin; D63.1 Anemia in chronic kidney disease; E03.9 Hypothyroidism, unspecified; E87.6 Hypokalemia; I95.9 Hypotension, unspecified; E87.5 Hyperkalemia; N18.32 Chronic kidney disease, stage 3b; M79.7 Fibromyalgia; R31.9 Hematuria, unspecified; E83.42 Hypomagnesemia; E86.1 Hypovolemia; E83.39 Other disorders of phosphorus metabolism; B96.5 Pseudomonas (aeruginosa) (mallei) (pseudomallei) as the cause of diseases classified elsewhere; B96.89 Other specified bacterial agents as the cause of diseases classified elsewhere; Z88.2 Allergy status to sulfonamides; Z79.01 Long term (current) use of anticoagulants
CPT/HCPCS: 36600; 70450; 71045; 73502; 80048; 80053; 80307; 81001; 81002; 81003; 82043; 82140; 82550; 82570; 82805; 82962; 83540; 83550; 83605; 83735; 83880; 84100; 84132; 84145; 84156; 84443; 84484; 85025; 85610; 85730; 86592; 87040; 87070; 87081; 87086; 87186; 87205; 87481; 92526; 92610; 93005; 93306; 94640; 94660; 97110; 97163; 97167; 97530; 97535; 99285; J0290; J0295; J0360; J0610; J0692; J0696; J0878; J0885; J1815; J1940; J2060; J2270; J2370; J2405; J3475; J3490; J7040; J7050; J7060; Q9967; 36415-L1; 36415-TC; J7613